=== PATIENT | male | born 1970 | race Caucasian/White ===

== ENCOUNTER → 2021-01-17 | Day surgery (SDC) | payer BC, SELFPAY ==
[~2021-01-17] MED LIST: Acetaminophen 500 MG TAB ONE; diphenhydrAMINE 50 MG/ML VIAL ONE
== END ==
LOC: CSHSDC 14:39
PROVIDERS: ATTEND Nurse Practitioner Family
DX: U07.1 COVID-19 (principal); Z23 Encounter for immunization
CPT/HCPCS: 96365; 96374; J1200; J3490; Q0244